=== PATIENT | male | born 1985 | race Caucasian/White ===

== ENCOUNTER 2016-12-08 20:31 | Emergency (ER) | payer OTHER ==
[~2016-12-08] VITALS: Ht 165.1 cm; Wt 94.4 kg
[~2016-12-08 20:31] MED LIST: ADAL1KIT SC; ALBU1AER9 INH; AMPH1TAB58 PO; AMPH30CA3 PO; EPP3/2 IM; MESA1.2T PO; MOME200A INH; TEMA15CA4 PO; ZOLP10TA PO
[2016-12-08 20:46] VITALS: TEMP 37.3; Ht 165.1 cm; Wt 94.4 kg
[2016-12-08] MEDS ORDERED: ALBU18002 INH (21:15)
[2016-12-08] MEDS ORDERED: LISI-461 PO (21:15)
[2016-12-08] MEDS ORDERED: EFFSR150 PO (21:15)
[2016-12-08] MEDS ORDERED: AMPH30TA2 PO (21:15)
[2016-12-08] MEDS ORDERED: CYCL10TA6 PO (21:15)
[2016-12-08] MEDS ORDERED: PERCOCET HOME PACK PO ONE (22:00)
[2016-12-08] MEDS ORDERED: VALA1TAB2 PO (22:15)
[2016-12-08] MEDS ORDERED: OXYC-57 PO (22:16)
--- NOTE | 2016-12-08 22:17 | EMERGENCY ROOM VISIT NOTE ---
History First contact with patient: 21:26 Chief Complaint: RASH Stated Complaint: PAIN SWELLING NUMBESS HIVES RASH BACK RT RIB CAGE History of Present Illness The patient is a 31 year old male who presents to the Emergency Room with complaints of a rash on the right side of his back. The patient states that 6 days ago, he developed pain and numbness in the right side of his back. He does have chronic back pain, so he states this was not unusual for him but was more painful than normal. He states that he was initially evaluated by his primary care provider and diagnosed with a possible sprain of his shoulder/ back. He reports that today he was looking millimeter and noticed a rash in the area of pain. The patient rates his discomfort a 7/10. He does report a history of chickenpox. He denies fevers/chills. Review of Systems A complete 10 point review of systems was reviewed with the patient with pertinent positives and negatives as per history of present illness. All else were negative. Past Medical/Surgical History Medical Problems: (1) Asthma Family History Diabetes mellitus Social History Smoking Status: Current Every Day Smoker Alcohol Use: none Drug Use: none Marital Status: single Housing Status: lives with family Occupation Status: employed Current/Historical Medications Scheduled Amphetamine-Dextroamphetamine 30MG (Adderall Xr 30MG), 30 MG PO DAILY Amphetamine-Dextroamphetamine 30MG (Adderall 30MG), 30 MG PO DAILY Cyclobenzaprine Hcl (Flexeril), 10 MG PO TID Lisinopril (Zestril), 10 MG PO DAILY Mesalamine (Lialda), 4 TAB PO DAILY Mometasone Furoate-Formoterol (Dulera 200/5 Mcg), 2 PUFFS INH BID Valacyclovir Hcl (Valtrex), 1,000 MG PO TID Venlafaxine Hcl (Effexor Extended Rel), 150 MG PO QAM Zolpidem Tartrate (Ambien), 20 MG PO HS Scheduled PRN Albuterol Sulfate (Proair Respiclick), 2 PUFFS INH Q4 PRN for RESCUE-ASTHMA Epinephrine (Epipen), 0.3 MG IM UD PRN for ALLERGIC REACTION Oxycodone/Acetaminophen 5MG/325MG (Percocet 5MG/325MG), 1-2 TABS PO Q4H PRN for Pain Allergies Coded Allergies: Lactobacillus (Verified Allergy, Intermediate, SHORTNESS OF BREATH, ) developed nasal congestion, swelling of face and throat Dairy (Verified Allergy, Unknown, ., 12/08/16) Lactose Intolerance (GI) (Unverified Allergy, Unknown, GI SYMPTOMS, ) Uncoded Allergies: WHITE PILLS (Allergy, Intermediate, UNKNOWN, 12/05/15) PATIENT SAYS HE IS ALLERGIC TO "PRETTY MUCH ANY WHITE PILLS". Physical Exam Vital Signs Date Time Temp Pulse Resp B/P (MAP) Pulse Ox O2 Delivery O2 Flow Rate FiO2 12/08/16 22:25 70 16 150/100 99 Room Air 12/08/16 20:46 37.3 104 18 164/96 97 Room Air Physical Exam VITALS: Vitals are noted on the nurse's note and reviewed by myself. Vital signs stable. GENERAL: This is a 31-year-old male, in no acute distress, nondiaphoretic, well- developed well-nourished. SKIN: There is a vesicular rash along the right thoracic region and mid abdomen which does not cross the midline. This appears to follow the T8 dermatome. HEART: Regular rate and rhythm without murmurs gallops or rubs. LUNGS: Clear to auscultation bilaterally without wheezes, rales or rhonchi. NEURO: Patient was alert and oriented to person place and time. Medical Decision & Procedures Medications Administered Medications (Trade) Dose Ordered Sig/Anna Route Start Time Stop Time Status Last Admin Dose Admin Valacyclovir HCl (Valtrex Tab) 1,000 mg NOW ONCE PO 12/08/16 22:00 12/08/16 22:01 DC 12/08/16 22:23 1,000 MG Oxycodone/ Acetaminophen (Percocet 5/ 325MG Home Pack) 1 homepack UD ONCE PO 12/08/16 22:00 12/08/16 22:01 DC 12/08/16 22:23 1 HOMEPACK Medical Decision Differential diagnosis includes herpes zoster, allergic reaction, contact dermatitis, among others. The patient is a 31-year-old male who presents today complaining of a rash to the right flank. Exam reveals a vesicular rash which follows a dermatomal distribution and does not cross midline. Clinically consistent with herpes zoster. The patient will be placed on Valtrex. He was given a course of pain medication. He was instructed to follow-up with his primary care provider for further evaluation. Based on the patient's presentation and work up, I feel the patient is stable for outpatient treatment. The patient was educated to return to the emergency department for any worsening of their current condition or new/concerning symptoms. He will follow up with his PCP. Medication reconciliation: I attest that I have personally reviewed the patient 's current medication list. Blood pressure screening: Patient was found to have an elevated blood pressure and was referred to their primary care provider for recheck and further treatment. Impression Primary Impression: Herpes zoster Departure Information Dispostion Home / Self-Care Condition GOOD Prescriptions Oxycodone/Acetaminophen 5MG/325MG (PERCOCET 5MG/325MG) Tab 1-2 TABS PO Q4H Y for Pain, #20 TAB For Initial Treatment Prov: Barbara Beth PA-C 12/08/16 Valacyclovir Hcl (VALTREX) 1 Gm Tab 1000 MG PO TID for 7 Days, #21 TAB Prov: Barbara Beth PA-C 12/08/16 Referrals Farzad Adair III, M.D. (PCP) Patient Instructions My [facility] Additional Instructions Valtrex as prescribed. This is an antiviral medication which may help your symptoms. You have been prescribed Percocet to be used for pain control. Take 1-2 tablets every 4-6 hours as needed for pain. This is a narcotic medication. You cannot drive or consume alcohol while on this medicine. This medicine should only be used for pain that cannot be controlled with [id number] pain medicines. For pain control, you can use the following [id number] medicines (if >12 yo): - Regular strength (325mg/tab) Tylenol (acetaminophen) 2 tabs every 4-6 hours as needed. Do not exceed 12 tablets in a 24 hour period. Avoid taking more than 4 grams (4000 mg) of Tylenol per day. This includes any other sources of acetaminophen you may take on a regular basis. - Regular strength (200 mg/tab) Advil (ibuprofen) 1-2 tabs every 4-6 hours as needed. Do not exceed a dose of 3200 mg per day. Call your primary care provider tomorrow to schedule follow-up this week. Return to the emergency department with pain that is not controlled by the above medications or any other new/concerning symptoms. Problem Qualifiers Primary Impression: Herpes zoster Herpes zoster complications: without complications Qualified Codes: B02.9 - Zoster without complications
[2016-12-08 22:25] VITALS: BP 150/100; PULSE 70; O2SAT 99
== END 2016-12-08 22:25 | disposition home or self-care (01) ==
LOC: C.EDB 20:32 → C.EDC 22:25
DX: B02.9 Zoster without complications (principal); J45.909 Unspecified asthma, uncomplicated; Z83.3 Family history of diabetes mellitus; F17.210 Nicotine dependence, cigarettes, uncomplicated

== ENCOUNTER 2017-02-24 00:28 | Emergency (ER) | payer SELFPAY ==
[~2017-02-24] VITALS: Ht 165.1 cm; Wt 94.8 kg
[~2017-02-24 00:28] MED LIST changes: -ADAL1KIT SC; +ALBU18002 INH; -ALBU1AER9 INH; -AMPH1TAB58 PO; +AMPH30TA2 PO; +CYCL10TA6 PO; +EFFSR150 PO; +LISI-461 PO; +OXYC-57 PO; -TEMA15CA4 PO
[2017-02-24 00:33] VITALS: TEMP 36.9; Ht 165.1 cm; Wt 94.8 kg
[2017-02-24] MEDS ORDERED: LSN5 PO (00:44)
[2017-02-24] MEDS ORDERED: AMPH20TA2 PO (00:45)
[2017-02-24] MEDS ORDERED: PROPARACAINE HCL 0.5% OP SOLN 15 ML BTL ONE (00:48)
--- NOTE | 2017-02-24 01:26 | EMERGENCY ROOM VISIT NOTE ---
History First contact with patient: 00:39 Chief Complaint: EYE PAIN Stated Complaint: LEFT EYE-PAIN,LIGHT SENSITIVE,OCULAR PRESSURE History of Present Illness The patient is a 31 year old male who presents to the Emergency Room with complaints of left eye pain and sensitivity to light. The patient states that while he was at work earlier in the day, he developed pain in the left eye. He states that he feels like his eyelid is "scratchy." He reports pressure and photophobia. He rates his discomfort a 5/10. There are no symptoms in the right eye. The patient is having difficulty opening his eye. He denies vision changes or double vision. 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 He does wear 24-hour contacts and states that he put in a new pair 2 days ago. He removed his contact after the symptoms started. Review of Systems A complete 10 point review of systems was reviewed with the patient with pertinent positives and negatives as per history of present illness. All else were negative. Past Medical/Surgical History Medical Problems: (1) Asthma Family History Diabetes mellitus Social History Smoking Status: Current Every Day Smoker Alcohol Use: none Drug Use: none Marital Status: single Housing Status: lives with family Occupation Status: employed Current/Historical Medications Scheduled Amphetamine-Dextroamphetamine 20MG (Adderall 20MG), 20 MG PO TID Lisinopril (Lisinopril), 5 MG PO DAILY Mesalamine (Lialda), 4 TAB PO DAILY Mometasone Furoate-Formoterol (Dulera 200/5 Mcg), 2 PUFFS INH BID Venlafaxine Hcl (Effexor Extended Rel), 150 MG PO QAM Zolpidem Tartrate (Ambien), 20 MG PO HS Scheduled PRN Albuterol Sulfate (Proair Respiclick), 2 PUFFS INH Q4 PRN for RESCUE-ASTHMA Cyclobenzaprine Hcl (Flexeril), 10 MG PO TID PRN for Muscle Spasms Epinephrine (Epipen), 0.3 MG IM UD PRN for ALLERGIC REACTION Physical Exam Vital Signs Date Time Temp Pulse Resp B/P (MAP) Pulse Ox O2 Delivery O2 Flow Rate FiO2 02/24/17 01:35 100 18 148/82 98 02/24/17 00:33 36.9 111 18 156/85 99 Room Air Right Eye Acuity: 20/40 Left Eye Acuity: 20/200 Physical Exam VITALS: Vitals are noted on the nurse's note and reviewed by myself. Vital signs stable. GENERAL: This is a 31-year-old male, in no acute distress, nondiaphoretic, well- developed well-nourished. HEAD: Normocephalic atraumatic. EYES: Pupils equal round and reactive to light and accommodation. There is moderate conjunctival injection of the left eye. There is discharge of clear tears from the left eye. Slit-lamp examination reveals no foreign bodies. Fluorescein staining does show diffuse punctate uptake over the cornea. No dendritic uptake. NEURO: Patient was alert and oriented to person place and time. Medical Decision & Procedures Medications Administered Medications (Trade) Dose Ordered Sig/Anna Route Start Time Stop Time Status Last Admin Dose Admin Ciprofloxacin HCl (Ciprofloxacin 0.3% Op Soln) 2 drops Q4H ONCE OP 02/24/17 01:30 02/24/17 01:31 DC 02/24/17 01:35 2 DROPS Medical Decision Differential diagnosis includes corneal abrasion, corneal foreign body, punctate keratitis, among others. The patient was evaluated as above. Slit-lamp examination showed fluorescein uptake consistent with a punctate keratitis due to contact lens use. The patient was given Ciloxan drops. He was instructed not to replace the contact until symptoms have fully resolved. He will follow-up with ophthalmology as needed. He verbalized understanding of my assessment and treatment plan was discharged home in good condition. Medication Reconcilliation Current Medication List: was personally reviewed by me Blood Pressure Screening Patient's blood pressure: Elevated blood pressure Blood pressure disposition: Elevated BP felt to be situational Impression Primary Impression: Punctate keratitis of left eye Departure Information Dispostion Home / Self-Care Condition GOOD Referrals Farzad Adair III, M.D. (PCP) Patient Instructions My [facility] Additional Instructions You have been treated in the Emergency Department today for your Conjunctivitis. You have been prescribed Ciloxan eye drops. This is an antibiotic which will help to prevent an infection from developing in your affected eye. You should use 2 drops in the affected eye every 2 hours while awake for the first 2 days, then every 4 hours for the remaining 5 days. This is a total of a 7-day course for these antibiotic eye drops. For pain control, you can use the following [id number] medicines (if >12 yo): - Regular strength (325mg/tab) Tylenol (acetaminophen) 2 tabs every 4-6 hours as needed. Do not exceed 12 tablets in a 24 hour period. Avoid taking more than 4 grams (4000 mg) of Tylenol per day. This includes any other sources of acetaminophen you may take on a regular basis. - Regular strength (200 mg/tab) Advil (ibuprofen) 1-2 tabs every 4-6 hours as needed. Do not exceed a dose of 3200 mg per day. You should relax in a quiet, dark place for the rest of the day. You should wear sunglasses while outside for the next few days until your eyes are not as sensitive to the light. Follow-up with an drag down for any difficulty with vision or persistent symptoms. Return to the Emergency Department if your current symptoms worsen despite treatment course outlined above, or if you develop any of the following symptoms : intractable pain, visual disturbances, loss of vision, increased redness, swelling, drainage, or if you develop a fever.
[2017-02-24] MEDS ORDERED: CIPROFLOXACIN HCL 0.3% OP SOLN 2.5 ML BTL OP ONE (01:30)
[2017-02-24 01:35] VITALS: BP 148/82; PULSE 100; O2SAT 98
== END 2017-02-24 01:37 | disposition home or self-care (01) ==
LOC: C.EDB 00:30
DX: H16.142 Punctate keratitis, left eye (principal); J45.909 Unspecified asthma, uncomplicated; Z83.3 Family history of diabetes mellitus; F17.210 Nicotine dependence, cigarettes, uncomplicated; Z79.899 Other long term (current) drug therapy